=== PATIENT | male | born 1990 | race Caucasian/White ===

== ENCOUNTER 2022-12-29 18:41 | Emergency (ER) | payer BC, OTHER ==
[~2022-12-29] VITALS: Ht 182.9 cm; Wt 130.3 kg
[2022-12-29] MEDS ORDERED: PERC5TAB12 PO (20:54)
[2022-12-29] MEDS ORDERED: IBUP80TA PO (20:54)
[2022-12-29] MEDS ORDERED: PERCOCET 5MG/325MG TAB PO ONE (20:55)
[2022-12-29 21:07] VITALS: BP 157/97
== END 2022-12-29 21:08 | disposition home or self-care (01) ==
LOC: M ED 18:41
DX: S23.41XA Sprain of ribs, initial encounter (principal); Y93.72 Activity, wrestling

== ENCOUNTER 2025-07-29 16:01 | Emergency (ER) | payer OTHER ==
[~2025-07-29] VITALS: Ht 182.9 cm; Wt 135.2 kg
[~2025-07-29 16:01] MED LIST: IBUP80TA PO; PERC5TAB12 PO
[2025-07-29 16:10] VITALS: TEMP 98.2
[2025-07-29 16:52] VITALS: BP 149/83
[2025-07-29] MEDS: NITROGLYCERIN 0.4 MG SUBL TABLET SL PRN (16:52)
[2025-07-29 17:07] LABS: BASO # 0.0 10^3/uL (0.0-0.2); BASO % 0.3 % (0.0-1.0); EOS # 0.0 10^3/uL (0.0-0.5); EOS % 0.4 % (0.0-3.0); LYMPH # 1.7 10^3/uL (1.5-5.0); LYMPH % 15.8 % (24.0-44.0); MONO # 1.0 10^3/uL (0.0-0.8); MONO % 9.5 % (2.0-8.0); NEUTROPHILS # 7.8 10^3/uL (1.5-8.5); NEUTROPHILS % 73.7 % (36.0-66.0); PLATELET COUNT, AUTOMATED 335 10^3/uL (150-450)
[2025-07-29 17:42] LABS: ALT/SGPT 76 U/L (7.0-40); AST/SGOT 35 U/L (<34); CALCIUM LEVEL 9.4 MG/DL (8.5-10.1); CARBON DIOXIDE LEVEL 22 MMOL/L (20-31); CHLORIDE LEVEL 108 MMOL/L (98-107); CK-MB VALUE MASS 2.3 NG/ML (<3.6); CPK CREATINE PHOSPHOKINASE 144 U/L (46-171); CREATININE FOR GFR 1.07 MG/DL (0.70-1.30); FREE T4 1.21 NG/DL (0.89-1.76); GLOMERULAR FILTRATION RATE > 90.0 (>60); MB/CK RELATIVE INDEX 1.59 (< OR =4); POTASSIUM SERUM 3.8 MMOL/L (3.5-5.1); SODIUM LEVEL 144 MMOL/L (136-145)
[2025-07-29] MEDS ORDERED: ISOVUE-370 76% 100 ML VIAL As Ordered ONE (18:02)
[2025-07-29 18:38] LABS: CK-MB VALUE MASS 2.3 NG/ML (<3.6)
[2025-07-29 18:55] LABS: CPK CREATINE PHOSPHOKINASE 141.0 U/L (46-171); MB/CK RELATIVE INDEX 1.63 (< OR =4)
[2025-07-29] MEDS: SUCRALFATE SUSP 1GM/10ML UD PO ONE (19:31)
[2025-07-29] MEDS: MAALOX 30 ML SUSP *UDC PO ONE (19:31)
[2025-07-29] MEDS: LIDOCAINE VISCOUS 2% SOLN 15 ML UDC PO ONE (19:32)
[2025-07-29 21:30] VITALS: BP 146/65
[2025-07-29 21:32] VITALS: O2SAT 92
[2025-07-29] MEDS ORDERED: PROT1TAB2 PO (21:39)
[2025-07-29] MEDS ORDERED: SUCR1SS PO (21:39)
== END 2025-07-29 21:47 | disposition home or self-care (01) ==
LOC: M ED 16:01 → EDBD 16:01 → M ED 21:47
DX: R07.9 Chest pain, unspecified (principal); R94.31 Abnormal electrocardiogram [ECG] [EKG]; K76.0 Fatty (change of) liver, not elsewhere classified; K21.9 Gastro-esophageal reflux disease without esophagitis; F10.10 Alcohol abuse, uncomplicated; Z79.1 Long term (current) use of non-steroidal anti-inflammatories (NSAID); Z79.899 Other long term (current) drug therapy
CPT/HCPCS: 36415; 71045; 71275; 80048; 80076; 82550; 82553; 83690; 83880; 84439; 84443; 84484; 85025; 93005; 93041; 94760; 99285; Q9967